=== PATIENT | male | born 1985 ===

== ENCOUNTER 2017-01-30 00:27 | Emergency (ER) | payer SELFPAY ==
[2017-01-30] MEDS ORDERED: Sodium Chloride 0.9% 1,000 ML IV STA (00:53)
--- NOTE | 2017-01-30 01:36 | ED PDOC ---
HPI: Abdomen Time Seen by Provider: 01/30/17 00:33 Chief Complaint (Nursing): Abdominal Pain Chief Complaint (Provider): abd pain History Per: Patient History/Exam Limitations: no limitations Onset/Duration Of Symptoms: Days Outside of [place] travel?: No Current Symptoms Are (Timing): Still Present Additional Complaint(s): 31yo male with no PMHx presents to the ED with c/o 3 months of worsening abdominal pain. Patient reports pain is localized to epigastrium and RUQ. Denies n/v. Reports burning sensation and states he has not sought medical care but due to pain persisting he presented to ED today. Pain is 7/10 and radiates to his back. Past Medical History Reviewed: Historical Data, Nursing Documentation, Vital Signs Vital Signs: Last Vital Signs Temp 97.6 F 01/30/17 00:37 Pulse 87 01/30/17 00:37 Resp 18 01/30/17 00:37 BP 126/96 H 01/30/17 00:37 Pulse Ox 97 01/30/17 01:39 - Medical History PMH: No Chronic Diseases - Surgical History Surgical History: Appendectomy - Family History Family History: States: No Known Family Hx - Social History Current smoker - smoking cessation education provided: No Alcohol: Occasional Drugs: Denies - Home Medications Home Medications: Ambulatory Orders Medication Instructions Recorded Esomeprazole Magnesium [Nexium] 40 mg PO DAILY #28 ecc 01/30/17 - Allergies Allergies/Adverse Reactions: Allergies Allergy/AdvReac Type Severity Reaction Status Date / Time No Known Allergies Allergy Verified 01/30/17 00:37 Review of Systems ROS Statement: Except As Marked, All Systems Reviewed And Found Negative Gastrointestinal: Positive for: Abdominal Pain. Negative for: Nausea, Vomiting Physical Exam - Reviewed Nursing Documentation Reviewed: Yes Vital Signs Reviewed: Yes - Physical Exam Appears: Positive for: Well, No Acute Distress Head Exam: Positive for: ATRAUMATIC, NORMAL INSPECTION, NORMOCEPHALIC Skin: Positive for: Normal Color, Warm, Dry Eye Exam: Positive for: Normal appearance, EOMI, PERRL ENT: Positive for: Normal ENT Inspection Neck: Positive for: Normal, Painless ROM, Supple Cardiovascular/Chest: Positive for: Regular Rate, Rhythm. Negative for: Murmur , Tachycardia Respiratory: Positive for: Normal Breath Sounds. Negative for: Wheezing, Respiratory Distress Gastrointestinal/Abdominal: Positive for: Bowel Sounds, Soft, Tenderness ( epigastric and RUQ ) Back: Positive for: Normal Inspection. Negative for: L CVA Tenderness, R CVA Tenderness Extremity: Positive for: Normal ROM. Negative for: Deformity, Swelling Neurologic/Psych: Positive for: Alert, Oriented - Laboratory Results Result Diagrams: 01/30/17 02:08 01/30/17 02:08 - ECG O2 Sat by Pulse Oximetry: 97 Pulse Ox Interpretation: Normal (RA) Medical Decision Making Medical Decision Makin: Impression: 31yo male w/ RUQ and epigastric pain Plan: Labs EKG IVF, Pepcid 20mg IV, Toradol 10mg IVP, Zofran 4mg IV reassess 0252: Labs reviewed, show no clinically significant abnormalities. Patient reports improvement in pain and is stable for d/c. Dx: gastritis F/U in the clinic in 2 days Rx: Nexium Scribe Attestation: Documented by Anjana Morel acting as a scribe for Akash Blankenship MD. Provider Scribe Attestation: All medical record entries made by the Scribe were at my direction and personally dictated by me. I have reviewed the chart and agree that the record accurately reflects my personal performance of the history, physical exam, medical decision making, and the department course for this patient. I have also personally directed, reviewed, and agree with the discharge instructions and disposition. Disposition - Clinical Impression Clinical Impression: Gastritis - Patient ED Disposition Is Patient to be Admitted: No Counseled Patient/Family Regarding: Studies Performed, Diagnosis, Need For Followup, Rx Given - Disposition Referrals: [facility] [Outside] Disposition: Routine/Home Disposition Time: 02:52 Condition: STABLE Prescriptions: Esomeprazole Magnesium [Nexium] 40 mg PO DAILY #28 ecc Instructions: Gastritis (ED)
[2017-01-30 02:20] LABS: CHLORIDE 102 mmol/L (98-107); SODIUM 148 mmol/l (132-148)
[2017-01-30 02:23] LABS: ALB/GLOB RATIO 1.2 (1.0-2.1); ALKALINE PHOSPHATASE 74 U/L (38-126); ALT/SGPT 41 U/L (21-72); AST/SGOT 35 U/L (17-59); BILIRUBIN,TOTAL 0.4 mg/dl (0.2-1.3); BLOOD UREA NITROGEN 13 mg/dl (9-20); CALCIUM 9.9 mg/dL (8.4-10.2); CARBON DIOXIDE 28 mmol/L (22-30); GFR AFRICAN-AMERICAN > 60; GLUCOSE,RANDOM 101 mg/dL (75-110); LIPASE 68 U/L (23-300); TOTAL PROTEIN 8.9 G/DL (6.3-8.2)
[2017-01-30 02:25] LABS: BASO # 0.1 K/uL (0.0-0.2); EOS # 0.3 K/uL (0.0-0.7); EOS % 3.9 % (0.0-4.0); HEMATOCRIT 50.1 % (35.0-51.0); LYMPH # 2.8 K/uL (1.0-4.3); LYMPH % 32.7 % (20.0-40.0); MEAN CELL VOLUME 85.1 fl (80.0-94.0); MEAN CORPUSCULAR HEMOGLOBIN 28.9 pg (27.0-31.0); MEAN CORPUSCULAR HGB CONC 33.9 g/dL (33.0-37.0); MEAN PLATELET VOLUME 7.7 fl (7.2-11.7); MONO # 0.5 K/uL (0.0-0.8); MONO % 6.2 % (0.0-10.0); NEUT # 4.8 K/uL (1.8-7.0); NEUT % 56.2 % (50.0-75.0); NRBC % 0.1 % (0.0-0.0); RED CELL DISTRIBUTION WIDTH 14.1 % (11.5-14.5); WHITE BLOOD COUNT 8.5 K/uL (4.8-10.8)
[2017-01-30 03:32] VITALS: BP 133/81; PULSE 81; RESP 17; TEMP 98.2; O2SAT 99
--- NOTE | 2017-01-30 08:53 | CARD ---
APPROVED REPORT EKG Measurement Heart [id number] <Conclusion> Normal sinus rhythm Right superior axis deviation Abnormal ECG
== END 2017-01-30 03:31 | disposition home or self-care (01) ==
LOC: H.ER 00:27
DX: R10.11 Right upper quadrant pain (principal); R10.13 Epigastric pain; K29.70 Gastritis, unspecified, without bleeding
CPT/HCPCS: 80053; 83690; 85025; 93005; 96361; 96374; 96375; 99283; J1885; J2405; J7040